=== PATIENT | male | born 2000 | race Caucasian/White ===

== ENCOUNTER → 2019-12-23 06:55 | Outpatient (CLI) | payer OTHER, SELFPAY ==
--- NOTE | 2019-12-23 07:11 | MRI_ITS ---
ACR Level 3 findings have been noted. An addendum which confirms receipt of the report will follow. STUDY: MRI BRAIN AND IAC WITH AND WITHOUT CONTRAST REASON FOR EXAM: Male, 19 years old patient with frontal sinus pressure and right sided headache. TECHNIQUE: Standardized multiplanar fat and water weighted pulse sequences were obtained. 19 ml of IV Dotarem was administered for the contrast portion of the examination. COMPARISON: None. FINDINGS: Normal size of the ventricles and extra-axial spaces for the patient''s age. Normal white matter tracts of the supratentorial brain. There appears to be a tiny focus of restricted diffusion within the posterior central medulla best seen on MR series 401 image 6 with associated abnormality on the ADC map. No T2* demonstrated susceptibility artifact. There is no demonstrated hemosiderin stain. Normal bilateral basal ganglia. Normal thalami. There is no extra-axial fluid accumulation. Normal flow voids within the major intracranial circulation suggesting patency by spin echo criteria. Normal venous enhancement. There is no enhancing intra-axial or extra-axial abnormality. Normal sella turcica, pituitary gland, infundibular stalk, optic chiasm and hypothalamus. Normal tectal plate and pineal gland. Normal midbrain, yovany and medulla. Normal cerebellum. Normal basal cisterns. Normal bilateral temporal bones. Normal bilateral internal auditory canals. There is no demonstrated intracanalicular or cisternal vestibular schwannoma (acoustic neuroma). There is no enhancement of the bilateral VIIth or VIIIth cranial nerves. Normal bilateral cochlea, vestibules and semicircular canals. No demonstrated orbital abnormality, within the constraints of a routine brain study. Normal visualized paranasal sinuses. Normal calvarium and skull base. Normal visualized soft tissue structures. Normal visualized upper cervical spine. MRI/Brain W/WO Contrast IMPRESSION: 1. Tiny focus of restricted diffusion within the posterior central medulla. This is of uncertain clinical significance. Differential considerations include tiny acute infarct. 2. Otherwise, normal MRI of the brain and internal auditory canals. Electronically Signed: Annamarie Freitas MD at 9:21 EDT , Service support ,
== END ==
PROVIDERS: Referring Provider Otolaryngology; Visit Provider Otolaryngology
DX: R51 Headache (principal)
CPT/HCPCS: 70553; A9575